=== PATIENT | male | born 1980 | race Caucasian/White ===

== ENCOUNTER 2018-08-14 13:27 | Emergency (ER) | payer SELFPAY ==
[~2018-08-14] VITALS: Ht 177.8 cm; Wt 94.3 kg
[2018-08-14 13:55] VITALS: BP 128/72; Ht 177.8 cm; Wt 94.3 kg
== END 2018-08-14 14:52 | disposition left against medical advice (07) ==
LOC: ED 13:27
DX: Z53.21 Procedure and treatment not carried out due to patient leaving prior to being seen by health care provider (principal)